=== PATIENT | male | born 1975 | race Caucasian/White ===

== ENCOUNTER 2017-04-09 18:44 | Emergency (ER) | payer OTHER ==
[~2017-04-09] VITALS: Ht 185.4 cm; Wt 81.6 kg
--- NOTE | 2017-04-09 19:32 | ED.ADGEN ---
Adult General Chief Complaint Chief Complaint " I was eating some broccoli... And felt like something got stuck.. I gave myself a glucagon shot.. 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 recently quit..".. 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 Patient has had previous dilation. Patient recently has reduced his intake of Prilosec. Patient currently able to swallow food products without problems. Patient currently without symptoms. No history immunosuppression. No recent travel. Review of Systems Review of Systems Constitutional: Denies fever or chills [] Eyes: Denies change in visual acuity, redness, or eye pain [] HENT: Denies nasal congestion or sore throat []complaints of esophageal dysphagia Respiratory: Denies cough or shortness of breath [] Cardiovascular: No additional information not addressed in HPI [] GI: Denies abdominal pain, nausea, vomiting, bloody stools or diarrhea [] : Denies dysuria or hematuria [] Musculoskeletal: Denies back pain or joint pain [] Integument: Denies rash or skin lesions [] Neurologic: Denies headache, focal weakness or sensory changes [] Endocrine: Denies polyuria or polydipsia [] All other systems were reviewed and found to be within normal limits, except as documented in this note. Family History Family History Noncontributory Current Medications Current Medications See nursing for home meds Allergies Allergies Allergies Coded Allergies Type Severity Reaction Last Updated Verified No Known Drug Allergies 04/09/17 No Physical Exam Physical Exam Constitutional: Well developed, well nourished, no acute distress, non-toxic appearance. [] HENT: Normocephalic, atraumatic, bilateral external ears normal, oropharynx moist, no oral exudates, nose normal. History of esophageal dysphagia and pain- currently without symptoms Eyes: PERRLA, EOMI, conjunctiva normal, no discharge. [] Neck: Normal range of motion, no tenderness, supple, no stridor. [] Cardiovascular:Heart rate regular rhythm, no murmur [] Lungs & Thorax: Bilateral breath sounds clear to auscultation [] Abdomen: Bowel sounds normal, soft, no tenderness, no masses, no pulsatile masses. [] Skin: Warm, dry, no erythema, no rash. [] Back: No tenderness, no CVA tenderness. [] Extremities: No tenderness, no cyanosis, no clubbing, ROM intact, no edema. [] Neurologic: Alert and oriented X 3, normal motor function, normal sensory function, no focal deficits noted. [] Psychologic: Affect normal, judgement normal, mood normal. [] Current Patient Data Vital Signs Vital Signs Date Time Temp Pulse Resp B/P (MAP) Pulse Ox O2 Delivery O2 Flow Rate FiO2 04/09/17 20:00 97.6 57 18 137/82 (100) 100 Room Air 04/09/17 18:50 97.0 EKG EKG [] Radiology/Procedures Radiology/Procedures [] Course & Med Decision Making Course & Med Decision Making Pertinent Labs and Imaging studies reviewed. (See chart for details). Patient to consider follow-up EGD. Patient to resume Prilosec. Patient will be given a prescription for glucagon and Prilosec. Patient follow-up at [facility]. Patient return if any concerns. [] Final Impression Final Impression 1. Dysphagia-esophageal stricture[] Problems: Dragon Disclaimer Dragon Disclaimer This electronic medical record was generated, in whole or in part, using a voice recognition dictation system. OTF HUBBARD MD Apr 09, 2017 19:32
[2017-04-09] MEDS ORDERED: GLUC1KIT IM (19:53)
[2017-04-09] MEDS ORDERED: OMEP20TA63 PO (19:53)
[2017-04-09 20:00] VITALS: BP 137/82
== END 2017-04-09 20:05 | disposition home or self-care (01) ==
LOC: ER 18:44
DX: K22.2 Esophageal obstruction (principal); R13.10 Dysphagia, unspecified
CPT/HCPCS: 99283